=== PATIENT | male | born 1950 | race Hispanic/Latino ===

== ENCOUNTER 2018-06-09 07:03 | Outpatient (CLI) | payer BC | END 2018-06-09 07:04 | disposition home or self-care (01) | LOC: CARDIO 07:03 | DX: I25.10 Atherosclerotic heart disease of native coronary artery without angina pectoris (principal) ==

== ENCOUNTER 2018-08-03 06:24 | Day surgery (SDC) | payer BC ==
[2018-07-26 09:20] VITALS: BMI 39.1
[2018-08-03 07:30] LABS: BASO # 0.01 K/mm3 (0.0-2.0); BASO % 0.1 % (0.0-3.0); HEMOGLOBIN 16.5 g/dL (14.0-18.0); LYMPH % 7.1 % (22.0-35.0); MEAN CELL VOLUME 88.5 fl (80.0-105.0); MEAN CORPUSCULAR HEMOGLOBIN 31.1 pg (25.0-35.0); MEAN CORPUSCULAR HGB CONC 35.1 g/dl (31.0-37.0); MEAN PLATELET VOLUME 10.5 fl (7.0-11.0); MONO # 0.2 (0.1-0.6); MONO % 1.3 % (1.0-6.0); PLATELET COUNT 205 10^3/uL (120.0-450.0); RBC 5.31 10^6/uL (3.5-6.1); RED CELL DISTRIBUTION WIDTH 13.3 % (11.5-14.5); WHITE BLOOD COUNT 14.4 10^3/uL (4.5-11.0)
[2018-08-03 07:33] LABS: INR 1.11; PARTIAL THROMBOPLASTIN TIME 32.5 Seconds (26.9-38.3); PROTHROMBIN TIME 12.5 SECONDS (9.4-12.5)
[2018-08-03 07:43] LABS: BLOOD UREA NITROGEN 21 mg/dL (7-21); GFR NON-AFRICAN AMERICAN > 60
[2018-08-03] MEDS ORDERED: Lidocaine PF 2% (5 ml) Inj (For Cardiac Arrhy) ONE (08:37)
[2018-08-03 08:41] LABS: ATYPICAL LYMPHOCYTE 1 % (0.0-0.0); LYMPHOCYTE 1 % (22.0-35.0); MONOCYTE 1 % (1.0-6.0); NEUTROPHIL 97 % (50.0-70.0); PLATELET ESTIMATE NORMAL (NORMAL)
[2018-08-03] MEDS ORDERED: Iohexol 350 MG/100 ML VIAL ONE ×2 (08:56→10:21)
[2018-08-03] MEDS ORDERED: Iohexol 350mgl/ml 50 ML ONE (08:56)
[2018-08-03] MEDS ORDERED: Nitroglycerin 50mg in D5W 0 MG/0 ML BOTTLE IV ONE (09:27)
[2018-08-03] MEDS ORDERED: Midazolam 2 MG/2 ML VIAL ONE ×2 (09:43→09:49)
--- NOTE | 2018-08-03 10:08 | CARD ---
APPROVED REPORT Date of service: 08/03/2018 EKG Measurement Heart [id number] CT 174P27 [id number] <Conclusion> Normal sinus rhythm Left axis deviation Right bundle branch block Abnormal ECG
[2018-08-03] MEDS ORDERED: Sodium Chloride 0.9% 1,000 ML IV SCH (11:00)
--- NOTE | 2018-08-03 11:59 | CARDCATH ---
PROCEDURE DATE: 08/03/2018 HISTORY: The patient is a 68-year-old male who presented with an abnormal stress test. His cardiac risk factors include marked obesity, hypertension and hypercholesterolemia. Because of this, cardiac catheterization was recommended. PROCEDURES: Left heart catheterization with coronary arteriography and left ventriculogram followed by percutaneous transluminal coronary angioplasty and stent of a diagonal vessel off the left anterior descending and a percutaneous transluminal coronary angioplasty and stent of the posterior descending artery off the right coronary artery. The right femoral artery was cannulated with 6-Malagasy sheath. There were no complications. I performed moderate sedation which included the presence of an independent trained observer that assisted in monitoring the patient's level of consciousness and physiologic status. After administration of Versed and fentanyl, my intra-service time was 45 minutes. Findings on catheterization revealed a right dominant circulation. The RCA revealed intimal irregularities with an 80% to 90% stenoses in the midportion of the PDA off the RCA. The left main artery was unremarkable. The LAD revealed diffuse atherosclerosis without critical lesions. The diagonal vessel, which is a moderate-size vessel, revealed an 80% to 90% stenosis in its midportion. The circumflex artery and obtuse marginal branches were free of significant disease. Left ventriculogram was viewed in the CHI projection. In the CHI projection, wall motion was within normal limits. Estimated ejection fraction of 60% to 65%. The patient was started on intravenous Angiomax on the fluoroscopic guide, the guiding catheter was placed in the RCA. An 0.014 ATW wire was used to cross the critical lesion. A 2.25 x 12 mm drug-eluting stent was placed and deployed in the midportion of the PDA of the RCA. Repeat coronary arteriography revealed an excellent result with no residual stenosis and DEISY III flow. The guider was then exchanged for EBU guider which was placed in the ostium of the left main artery. An 0.014 ATW wire was used and placed across the diagonal vessel across the critical lesion. A 2.25 x 8 mm drug-eluting stent was placed and deployed in the diagonal vessel. Repeat coronary arteriography revealed excellent result with no residual stenosis and DEISY III flow. Angio-Seal was used to close the femoral artery site. The patient tolerated the procedure well. In summary, the procedure was successful percutaneous transluminal coronary angioplasty and stent of a critical stenosis of the posterior descending artery off the right coronary artery and the diagonal vessel off the left anterior descending with drug-eluting stents. Cardiac catheterization reveals two-vessel coronary artery disease. Left ventricular function is normal. Given these findings, the patient will need to remain on aspirin indefinitely and Plavix for at least a year and undergo a strict cardiac risk reduction program. Jesús Anderson MD
--- NOTE | 2018-08-03 13:03 | CARD ---
APPROVED REPORT Date of service: 08/03/2018 EKG Measurement Heart [id number] ND 174P52 [id number] <Conclusion> Normal sinus rhythm Right bundle branch block Left anterior fascicular block Bifascicular block Abnormal ECG
--- NOTE | 2018-08-03 22:59 | HP ---
DATE OF EXAM: 08/03/2018 HISTORY OF PRESENT ILLNESS: He is a 68-year-old white male who presents to the hospital status post cardiac catheterization with Dr. Jesús Anderson for coronary artery disease where he had stents placed. He is now resting comfortably in Telemetry. He is feeling a little bit better. No chest pain or shortness of breath at this time which is good. He had abnormal stress test on the outpatient then was set up for cardiac catheterization with Dr. Anderson. PAST MEDICAL AND SURGICAL HISTORY: He has got a past medical history of hypertension, arthritis, he is on CPAP for obstructive sleep apnea. He has arthritis in both of his knees. He has steroid injection in both of his knees. He has had a nasal polypectomy left knee surgery, right knee surgery. SOCIAL HISTORY: Does drink beer. No smoking. No drugs. FAMILY HISTORY: His mother had cardiovascular disease. MEDICATIONS: He is currently on Ecotrin, Lipitor, and Plavix. REVIEW OF SYSTEMS: No acute vision or hearing changes. No sore throat. No neck pain. No chest pain or palpitations at this time. No shortness of breath or cough. No abdominal pain and nausea, vomiting, constipation, or diarrhea. No leg pain. PHYSICAL EXAMINATION: GENERAL: He is comfortable in bed at this time. VITAL SIGNS: Temperature 98.7, pulse 82, blood pressure 115/72, and respiratory rate 20. HEENT: Head is atraumatic and normocephalic. Extraocular muscles are intact. Throat is moist. NECK: Supple. Thyroid midline. HEART: Regular rate. Normal S1 and S2. LUNGS: Decreased breath sounds. Poor inspiration. Clear to auscultation though. ABDOMEN: Soft, morbidly obese, nontender. Positive bowel sounds. No guarding, no rebound. EXTREMITIES: No edema bilaterally. Can move four extremities well. SKIN: For I could tell is intact. No apparent rashes or ulcers. LABORATORY DATA: White count 40.4 could be reactionary or inflammatory we will check it again tomorrow, hemoglobin 16.5, hematocrit 47, and platelets 205. INR is 1.11. Sodium 138, potassium 4.3, BUN 21, creatinine 0.7, GFR is greater than 60, sugar is 142, and calcium 10. IMPRESSION AND PLAN: Overall, he is comfortably, he had normal sinus rhythm with left axis deviation, right bundle branch block on EKG, he is here for coronary artery disease, stents placed, obesity, coronary artery disease, high cholesterol. Uri Douglas DO
[2018-08-04 05:43] VITALS: O2SAT 96
[2018-08-04 07:30] LABS: BASO # 0.02 K/mm3 (0.0-2.0); BASO % 0.1 % (0.0-3.0); EOS # 0.1 (0.0-0.7); EOS % 0.9 % (1.5-5.0); HEMOGLOBIN 14.8 g/dL (14.0-18.0); LYMPH # 1.3 (1.2-3.4); LYMPH % 9.8 % (22.0-35.0); MEAN CELL VOLUME 90.2 fl (80.0-105.0); MEAN CORPUSCULAR HEMOGLOBIN 30.9 pg (25.0-35.0); MEAN CORPUSCULAR HGB CONC 34.3 g/dl (31.0-37.0); MEAN PLATELET VOLUME 10.2 fl (7.0-11.0); MONO # 0.7 (0.1-0.6); MONO % 5.3 % (1.0-6.0); RBC 4.79 10^6/uL (3.5-6.1); RED CELL DISTRIBUTION WIDTH 13.6 % (11.5-14.5); WHITE BLOOD COUNT 13.6 10^3/uL (4.5-11.0)
[2018-08-04 08:03] LABS: BLOOD UREA NITROGEN 20 mg/dL (7-21); GFR NON-AFRICAN AMERICAN > 60
--- NOTE | 2018-08-04 11:19 | PN ---
DATE: 08/04/2018 CARDIOLOGY FOLLOWUP SUBJECTIVE: The patient is chest pain free, he is ambulating without symptoms. OBJECTIVE: VITAL SIGNS: Blood pressure is 136/80, heart rates in the 60s. NECK: Negative JVD. LUNGS: Without rales. HEART: S1 and S2. EXTREMITIES: Without edema. LABORATORY DATA: BUN and creatinine are unremarkable. Hemoglobin is 14.8. IMPRESSION: 1. Stable post percutaneous transluminal coronary angioplasty and stent of two vessels. 2. Coronary artery disease. 3. Hypercholesterolemia. 4. Hypertension. 5. Obesity. PLAN: Given these findings, the patient is stable for discharge. I have discussed with the patient about the need for cardiac risk reduction program including weight loss and exercise. We will start him on Crestor at home. He will continue his aspirin indefinitely and Plavix for least a year. Followup instructions have been given in detail. Jesús Anderson MD
--- NOTE | 2018-08-04 13:03 | DS ---
HOSPITAL COURSE: He did well with his cardiac stents with Dr. Anderson. He will be discharged this morning. He slept fair and not likely be in the hospital and does not like the food that much, but no chest pain, no shortness of breath, no abdominal pain. He is able to walk okay. PHYSICAL EXAMINATION: VITAL SIGNS: Temperature 97.3, 74 pulse, 136/80 blood pressure, 20 respiratory rate, 96% O2 sat on room air. HEENT: His head is atraumatic, normocephalic. HEART: Regular rate. LUNGS: Decreased breath sounds, but clear. ABDOMEN: Soft, morbidly obese. Positive bowel sounds. Nontender. EXTREMITIES: No edema. MEDICATIONS: He is on Ecotrin, Lipitor, and Plavix. Dr. Anderson will go over his home medications. LABORATORY DATA: He has 138 sodium, potassium 4.5, BUN 20, creatinine 0.6, GFR is greater than 60, sugar is 118, and calcium 9. He has a 1.11 INR. His white count was 14.4, came down to 13.6 that will be followed in the outpatient with Dr. Hernandez. Hemoglobin is 14.8, hematocrit 42.2, and platelets are 181. He had CAD and stent placements. He will be discharged if Dr. Anderson sees him. He needs to have a CBC in the office with Dr. Hernandez next week. We also discussed a weight loss diet with him and increase in his walking and he will follow up with Dr. Hernandez. Uri Douglas DO JOSÉ MANUEL
[2018-08-04 13:13] VITALS: BP 151/88; PULSE 73; RESP 18; TEMP 97.8
== END 2018-08-04 14:00 | disposition home or self-care (01) ==
LOC: CATH 06:24 → 2RSO 11:00 → CATH 08-04 14:00
PROVIDERS: ATTEND Internal Medicine Cardiovascular Disease
DX: I25.10 Atherosclerotic heart disease of native coronary artery without angina pectoris (principal); I10 Essential (primary) hypertension; G47.33 Obstructive sleep apnea (adult) (pediatric); E78.00 Pure hypercholesterolemia, unspecified; I45.10 Unspecified right bundle-branch block; M17.0 Bilateral primary osteoarthritis of knee; E66.9 Obesity, unspecified; Z68.39 Body mass index [BMI] 39.0-39.9, adult; Z79.82 Long term (current) use of aspirin
CPT/HCPCS: 36415 ×2; 80048 ×2; 85025 ×2; 85610; 85730; 86850; 86900; 93005; 93458; 99152; 99153; C1725; C1760; C1769 ×2; C1874 ×2; C1887 ×2; C2629; C9600; C9601; J0583; J1644; J2250; J3010; J7030; J7040; Q9967 ×3